=== PATIENT | female | born 1950 | race Caucasian/White ===

== ENCOUNTER → 2017-02-05 | Outpatient (CLI) | payer OTHER ==
[~2017-02-05] MED LIST: ASP81TEC PO; ATOR80TA2 PO; FISH1CAP15 PO; LISI1TAB6 PO; METO25TA PO; MULT1CAP27 PO; ROSU10TA12 PO; UBID200C17 PO
== END ==
LOC: RAD 07:16
PROVIDERS: ATTEND Family Medicine
DX: Z12.31 Encounter for screening mammogram for malignant neoplasm of breast (principal)
CPT/HCPCS: 77067

== ENCOUNTER → 2018-01-20 | Outpatient (CLI) | payer OTHER ==
--- NOTE | 2018-01-20 12:20 | Diagnostic Imaging Report ---
Indication: Routine screening. Comparison is made with prior exam from 02/05/2017 and 01/30/2016. 2-D and 3-D bilateral screening mammography was performed with CAD. Scattered fibroglandular densities are identified bilaterally. Benign calcifications are identified bilaterally. No mass or malignant-appearing microcalcifications are seen. Axillae are unremarkable. Impression: BI-RADS category 2 No mammographic features suspicious for malignancy are identified. ACR BI-RADS Category 2: Benign findings. Result letter will be mailed to the patient. Note: At least 10% of breast cancer is not imaged by mammography. Dictated by: Dictated on workstation # [id number]
== END ==
LOC: RAD 07:50
PROVIDERS: ATTEND Nurse Practitioner Family
DX: Z12.31 Encounter for screening mammogram for malignant neoplasm of breast (principal)
CPT/HCPCS: 77067

== ENCOUNTER → 2018-12-15 | Outpatient (CLI) | payer MEDICARE, OTHER ==
--- NOTE | 2018-12-15 18:33 | Diagnostic Imaging Report ---
PROCEDURE: US right lower extremity venous. TECHNIQUE: Multiple real-time grayscale images were obtained over the right lower extremity in various projections. Additional spectral analysis and color Doppler duplex images were also obtained. INDICATION: Right leg pain and swelling. FINDINGS: There is no evidence of right lower extremity DVT. Right lower extremity deep venous system shows normal compressibility with normal response to augmentation and Valsalva. No fluid collection or mass is seen. IMPRESSION: No evidence of right lower extremity DVT. Dictated by: Dictated on workstation # [id number]
== END ==
LOC: RAD 11:13
PROVIDERS: ATTEND Internal Medicine
DX: R60.0 Localized edema (principal)

== ENCOUNTER → 2019-01-26 | Outpatient (CLI) | payer MEDICARE, OTHER ==
--- NOTE | 2019-01-26 19:18 | Diagnostic Imaging Report ---
INDICATION: Routine screening. Comparison is made with prior mammograms from 01/20/2018 and 02/05/2017. 2-D and 3-D bilateral screening mammography was performed. The current study was also evaluated with a Computer Aided Detection (CAD) system. 3-D tomosynthesis was also performed and reviewed. FINDINGS: Scattered fibroglandular densities are identified bilaterally. Benign calcifications are noted bilaterally. No mass or malignant-appearing microcalcifications are seen. The axillae are unremarkable. IMPRESSION: No mammographic features suspicious for malignancy are identified. ACR BI-RADS Category 2: Benign findings. Result letter will be mailed to the patient. Note: At least 10% of breast cancer is not imaged by mammography. Dictated by: Dictated on workstation # [id number]
== END ==
LOC: RAD 10:11
PROVIDERS: ATTEND Nurse Practitioner Family
DX: Z12.31 Encounter for screening mammogram for malignant neoplasm of breast (principal)
CPT/HCPCS: 77067

== ENCOUNTER 2019-03-24 12:00 | Outpatient (CLI) | payer MEDICARE, OTHER ==
[~2019-03-24] VITALS: Ht 154.9 cm; Wt 90.8 kg
[~2019-03-24 12:00] MED LIST changes: +ASPI-999 PO; +ATOR20TA66 PO; +CHOL100048 PO; +LISI-552 PO; +METO-387 PO; +MULT1TAB69 PO; +TURM538C PO; +UBID200C16 PO
== END 2019-03-24 12:29 | disposition home or self-care (01) ==
LOC: PREOP 12:00
PROVIDERS: ATTEND Internal Medicine
DX: Z01.818 Encounter for other preprocedural examination (principal)

== ENCOUNTER 2019-03-26 07:28 | Day surgery (SDC) | payer MEDICARE, OTHER ==
--- NOTE | 2019-03-13 11:07 | HISTORY AND PHYSICAL ---
DATE OF SERVICE: COLONOSCOPY HISTORY AND PHYSICAL REFERRING PHYSICIAN: Randolph Rosenbaum DO HISTORY OF PRESENT ILLNESS: The patient is a 68-year-old white female referred for surveillance colonoscopy. She has a past history of colon polyps noted on her first colonoscopy in 2001. She has a cousin, who was diagnosed with colon cancer at the age 64 and an aunt with colon cancer on the same side of the family, unknown age. Her last colonoscopy was nearly 6 years ago in 05/2013 revealed mild diverticular disease confined to the sigmoid colon with no evidence for neoplasia. She denies any bowel habit changes noted no bright red blood per rectum or melena and denies abdominal pain. She believes that her weight has been stable. PAST MEDICAL HISTORY: Significant for hypertension and hyperlipidemia with no known history of vascular disease per her report. PAST SURGICAL HISTORY: She had total abdominal hysterectomy and bilateral salpingo-oophorectomy over 10 years ago. She had x2 and an appendectomy many years ago. 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 She still works on occasion. She reports no past smoking or drinking history. PHYSICAL EXAMINATION: GENERAL: Reveals a well-appearing white female in no acute distress. VITAL SIGNS: Weight 203 pounds, blood pressure 138/90. HEENT: Unremarkable. Sclerae nonicteric. CHEST: Clear to auscultation. CARDIOVASCULAR: Reveals regular rate and rhythm without murmur, S3 or S4. ABDOMEN: Soft, supple without mass, organomegaly or tenderness. EXTREMITIES: Reveal no cyanosis, clubbing or edema. ASSESSMENT: The patient is set up for surveillance colonoscopy due to past history of colon polyps and a family history of colon cancer. See HPI. Prep instructions with the Suprep kit were given and questions were answered. Electronic medical record was reviewed. I thank you for the referral of this pleasant lady. Job ID: [id number] DocumentID: [id number] Dictated Date: 03/09/2019 10:06:48 Employment Service Specialist Date: 03/09/2019 10:34:35 Dictated By: CY PATEL MD
[~2019-03-26] VITALS: Ht 154.9 cm; Wt 90.8 kg
[2019-03-26] VITALS (11 sets, daily range): BP systolic 141–190; BP diastolic 80–98
[2019-03-26] MEDS ORDERED: fentaNYL INJECTION 100 MCG/2 ML AMP IVP ONE (07:30)
[2019-03-26] MEDS ORDERED: D5 LR IV SOLUTION 1,000 ML IV STA (07:30)
[2019-03-26] MEDS ORDERED: MIDAZOLAM 5 MG/5 ML (VERSED) VIAL IV PRN (07:30)
[2019-03-26] MEDS ORDERED: LIDOCAINE JELLY 2% 6 ML SYRINGE MM PRN (07:30)
[2019-03-26] MEDS ORDERED: D5 LR IV SOLUTION 1,000 ML IV ONE (07:37)
[2019-03-26] MEDS ORDERED: LIDOCAINE JELLY 2% 6 ML SYRINGE ONE (08:00)
[2019-03-26] MEDS ORDERED: fentaNYL INJECTION 100 MCG/2 ML AMP ONE (08:00)
[2019-03-26] MEDS ORDERED: MIDAZOLAM 5 MG/5 ML (VERSED) VIAL ONE (08:00)
--- NOTE | 2019-03-26 08:01 | Pre-Op Note & Conscious Sedat ---
Pre-Operative Progress Note H&P Reviewed The H&P was reviewed, patient examined and no changes noted. Date H&P Reviewed: Mar 26, 2019 Time H&P Reviewed: 07:30 Conscious Sedation Pre-Proced ASA Score 2 For ASA 3 and 4: Consider anesthesia and medical clearance. Also, for patients with a history of failed moderate sedation consider anesthesia. Airway Lungs Heart ASA score ASA 1: a normal healthy patient ASA 2: a patient with a mild systemic disease (mid diabetes, controlled hypertension, obesity ASA 3: a patient with a severe systemic disease that limits activity (angina, COPD, prior Myocardial infarction) ASA 4: a patient with an incapacitating disease that is a constant threat to life (CHF, renal failure) ASA 5: a moribund patient not expected to survive 24 hrs. (ruptured aneurysm) ASA 6: a declared brain- patient whose organs are being harvested. For emergent operations, add the letter E after the classification Mallampati Classification Grade 2 Sedation Plan Analgesia, Amnesia, Plan communicated to team members, Discussed options with patient/fam, Discussed risks with patient/fam The patient is an appropriate candidate to undergo the planned procedure, sedation, and anesthesia. The patient immediately re-assessed prior to indication. CY PATEL MD Mar 26, 2019 08:01
--- NOTE | 2019-03-27 01:46 | OPERATIVE REPORT ---
DATE OF SERVICE: COLONOSCOPY SUMMARY INDICATION FOR THE PROCEDURE: Colonoscopy was performed due to history of colon polyps and a family history of colon cancer. The patient was placed in the left lateral decubitus position. Prior to undergoing colonoscopy, digital rectal evaluation was performed. Anal sphincter tone was normal and the perianal reflexes intact. No abnormalities, no additional inspection of anal canal or distal rectal vault. The colonoscope was then inserted into the rectum and under direct visualization advanced to cecum. The cecum was identified by identification of the ileocecal valve and cecal strap. Photographic documentation was obtained. Careful inspection was made on withdrawal. The quality of the prep was good. The patient tolerated the procedure well. FINDINGS: There was no evidence for internal or external hemorrhoids and the rectum was unremarkable. There were a moderate number of small to medium size sigmoid diverticulum without evidence for diverticulitis. No other sigmoid abnormalities were noted. The descending colon, splenic flexure, transverse colon, hepatic flexure, ascending colon and cecum were unremarkable. ASSESSMENT: No evidence for neoplasia was identified. A mild to moderate number sigmoid that is of a small to medium size sigmoid diverticulum were noted without evidence for diverticulitis. This was otherwise normal colonoscopy to the cecum. Considering family history, I would advocate consideration for repeat screening colonoscopy in 5 years. I thank you for the referral of this pleasant lady. Job ID: [id number] DocumentID: [id number] Dictated Date: 03/26/2019 17:10:39 Tube Bender Hand Date: 03/27/2019 01:44:52 Dictated By: CY PATEL MD
== END 2019-03-26 09:05 | disposition home or self-care (01) ==
LOC: ENDO 07:28
PROVIDERS: ATTEND Internal Medicine
DX: Z12.11 Encounter for screening for malignant neoplasm of colon (principal); K57.30 Diverticulosis of large intestine without perforation or abscess without bleeding; I10 Essential (primary) hypertension; E78.5 Hyperlipidemia, unspecified; Z86.010 Personal history of colon polyps; Z90.710 Acquired absence of both cervix and uterus; Z90.89 Acquired absence of other organs; Z80.0 Family history of malignant neoplasm of digestive organs

== ENCOUNTER → 2020-01-28 | Outpatient (CLI) | payer MEDICARE, OTHER ==
[~2020-01-28] MED LIST changes: -METO-387 PO; +MTP25TSR PO; +MULT-567 PO; -MULT1TAB69 PO
--- NOTE | 2020-01-28 09:41 | Diagnostic Imaging Report ---
INDICATION: Routine screening. Comparison is made with prior mammogram from 01/26/2019 and 01/20/2018. 2-D and 3-D bilateral screening mammography was performed with CAD. Both breasts remain heterogeneously dense, limiting the sensitivity of mammography. Benign calcifications are noted bilaterally. The parenchymal pattern is stable. No mass or malignant appearing microcalcifications are identified. Axillae are unremarkable. IMPRESSION: BI-RADS Category 2 No mammographic features suspicious for malignancy are identified. ACR BI-RADS Category 2: Benign findings. Result letter will be mailed to the patient. Note: At least 10% of breast cancer is not imaged by mammography. Dictated by: Dictated on workstation # [id number]
== END ==
LOC: RAD 07:09
PROVIDERS: ATTEND Internal Medicine
DX: Z12.31 Encounter for screening mammogram for malignant neoplasm of breast (principal)
CPT/HCPCS: 77063; 77067

== ENCOUNTER → 2020-10-19 | Outpatient (CLI) | payer MEDICARE, OTHER ==
[~2020-10-19] MED LIST changes: -LISI-552 PO; +LISI20TA26 PO
[2020-10-19 14:00] LABS: CALCIUM 9.9 MG/DL (8.5-10.1); CREATININE SERUM 1.1 MG/DL (0.60-1.30); MAGNESIUM 2.4 MG/DL (1.6-2.4); POTASSIUM 4.2 MMOL/L (3.6-5.0)
== END ==
LOC: LAB 13:10
PROVIDERS: ATTEND Nurse Practitioner Family
DX: I10 Essential (primary) hypertension (principal)
CPT/HCPCS: 36415; 80048; 83735

== ENCOUNTER → 2020-10-20 | Outpatient (CLI) | payer MEDICARE, OTHER | LOC: CARD 13:48 | PROVIDERS: ATTEND Nurse Practitioner Family | DX: R06.09 Other forms of dyspnea (principal); I51.7 Cardiomegaly | CPT/HCPCS: 93306 ==

== ENCOUNTER → 2020-10-24 | Outpatient (CLI) | payer MEDICARE, OTHER ==
[~2020-10-24] VITALS: Ht 157 cm; Wt 100.0 kg
[~2020-10-24] MED LIST changes: +CATHETER FLUSH 10 ML SYR IV PRN; +REGADENOSON 0.4 MG/5 ML SYR (LEXISCAN) IV ONE
[2020-10-24 09:06] VITALS: BP 155/78
[2020-10-24] MEDS: REGADENOSON 0.4 MG/5 ML SYR (LEXISCAN) IV ONE ×2 (09:07→09:18)
[2020-10-24 09:18] VITALS: BP 165/87
--- NOTE | 2020-10-24 15:54 | STRESS TEST ---
DATE OF SERVICE: 10/24/2020 RESTING AND POST REGADENOSON TECHNETIUM-99M TETROFOSMIN SPECT CT IMAGING ORDERING PHYSICIAN: Blanche Madera APRN PRIMARY PHYSICIAN: Dr. Rosenbaum. CLINICAL DIAGNOSIS: Shortness of breath. Baseline images were carried out after injection of 10.78 mCi of technetium-99m Tetrofosmin. This was followed by 0.4 mg regadenoson and 29.1 mCi of technetium-99m Tetrofosmin for stress imaging. The electrocardiogram showed sinus rhythm at baseline. There was subtle, nonspecific ST and T-wave abnormality at baseline. It did not change significantly with regadenoson infusion. The patient noted some shortness of breath and a headache following regadenoson infusion, which resolved in a few minutes. Review of images at rest and following stress does not indicate any distinct perfusion defects consistent with significant myocardial ischemia or infarction. This study is technically difficult because of considerable patient motion during image acquisition, especially during stress image acquisition. Gated images show normal global left ventricular systolic function with normal regional wall motion. Left ventricular ejection fraction is calculated to be 68%. Left ventricular end diastolic volume is 29 mL. TID is absent (0.93). CONCLUSIONS: 1. No evidence of any significant myocardial ischemia or infarction on this study. 2. Normal regional wall motion. 3. Normal global left ventricular systolic function with a calculated ejection fraction of 68%. Job ID: [id number] DocumentID: [id number] Dictated Date: 10/24/2020 15:11:34 Stain Sprayer Date: 10/24/2020 15:52:31 Dictated By: FATMATA MASSEY MD, MA, FACP, FACC,
== END ==
LOC: CARD 07:12
PROVIDERS: ATTEND Nurse Practitioner Family
DX: R06.09 Other forms of dyspnea (principal); R06.02 Shortness of breath
CPT/HCPCS: 78452; 93017; A9502

== ENCOUNTER → 2021-01-29 | Outpatient (CLI) | payer MEDICARE, OTHER ==
[~2021-01-29] MED LIST changes: -CATHETER FLUSH 10 ML SYR IV PRN; -REGADENOSON 0.4 MG/5 ML SYR (LEXISCAN) IV ONE
--- NOTE | 2021-01-29 14:57 | Diagnostic Imaging Report ---
INDICATION: Routine screening. COMPARISON is made with prior mammograms 01/28/2020 and 01/26/2019. 2-D and 3-D bilateral screening mammography was performed with CAD. Scattered fibroglandular densities are identified bilaterally. Benign-appearing calcifications are noted bilaterally. No mass or malignant-appearing microcalcifications are seen. Axillae are unremarkable. IMPRESSION: BI-RADS Category 2 No mammographic features suspicious for malignancy are identified. ACR BI-RADS Category 2: Benign findings. Result letter will be mailed to the patient. Note: At least 10% of breast cancer is not imaged by mammography. Dictated by: Dictated on workstation # [id number]
== END ==
LOC: RAD 14:18
PROVIDERS: ATTEND Internal Medicine
DX: Z12.31 Encounter for screening mammogram for malignant neoplasm of breast (principal)
CPT/HCPCS: 77063; 77067

== ENCOUNTER → 2022-01-31 | Outpatient (CLI) | payer MEDICARE, OTHER ==
--- NOTE | 2022-01-31 13:52 | Diagnostic Imaging Report ---
Indication: Routine screening. Comparison is made with prior mammogram from 01/29/2021 and 01/28/2020. 2-D and 3-D bilateral screening mammography was performed with CAD. CAD is utilized. The current study was also evaluated with a Computer Aided Detection (CAD) system. Both breasts are heterogeneously dense, limiting the sensitivity of mammography. There is a nodular density just above the nipple line on the left MLO view at anterior depth, appearing more prominent than prior exams. No correlate on the CC view is identified. There is scattered benign calcifications. No malignant-appearing microcalcifications are identified. Axillae are unremarkable. IMPRESSION: BI-RADS 0 Left breast density. Additional views are recommended for further evaluation. ACR BI-RADS Category 0: Incomplete. (Needs additional imaging evaluation). Result letter will be mailed to the patient. Note: At least 10% of breast cancer is not imaged by mammography. Dictated by: Dictated on workstation # [id number]
== END ==
LOC: RAD 10:20
PROVIDERS: ATTEND Internal Medicine
DX: Z12.31 Encounter for screening mammogram for malignant neoplasm of breast (principal)
CPT/HCPCS: 77063; 77067

== ENCOUNTER → 2022-02-18 | Outpatient (CLI) | payer MEDICARE, OTHER ==
--- NOTE | 2022-02-18 14:23 | Diagnostic Imaging Report ---
INDICATION: Left breast density. Patient presents for additional views. COMPARISON: Recent screening study from 01/31/2022. TECHNIQUE: Unilateral left 2D and 3D diagnostic mammography was performed. This included spot compression CC and ML views as well as conventional 90 degree lateral views. FINDINGS: The additional views fail to demonstrate a discrete mass. The area of density noted on the left MLO view most likely represented superimposed tissue. There appears to be normal dispersion of fibroglandular elements with additional views. IMPRESSION: Additional views fail to demonstrate a discrete mass. The patient may return to routine annual screening mammography. ACR BI-RADS Category 1: Negative. Result letter will be mailed to the patient. Note: At least 10% of breast cancer is not imaged by mammography. Dictated by: Dictated on workstation # [id number]
== END ==
LOC: RAD 12:45
PROVIDERS: ATTEND Internal Medicine
DX: R92.8 Other abnormal and inconclusive findings on diagnostic imaging of breast (principal)
CPT/HCPCS: 77065; G0279

== ENCOUNTER 2023-02-14 10:26 | Emergency (ER) | payer MEDICARE, OTHER ==
[~2023-02-14] VITALS: Ht 157 cm; Wt 90.7 kg
--- NOTE | 2023-02-14 10:58 | ED Fall/Injury ---
General Chief Complaint: Trauma-Non Activation Stated Complaint: FALL | HANDS,KNEES,HEAD INJ Nursing Triage Note: pt presents to ed for fall outside outpatient sidewalk. pt reports she tripped over curb and fell face forward. pt denies loc. pt has abrasion to head and l and r knee. Source: patient Exam Limitations: no limitations History of Present Illness Date Seen by Provider: Feb 14, 2023 Time Seen by Provider: 10:38 Initial Comments Here from outpatient parking lot after patient fell after tripping over a curb. She landed on both knees and both arms and did strike her head. She is unsure of loss of consciousness but does not think so. She did not break her glasses. She was able to walk afterwards and does have minor abrasions to both knees and both hands at the base as well as both elbows. She does have superficial abrasion to the forehead. She is not on blood thinners. She does not have nausea or vomiting now and denies vision changes. She did get the wind knocked out of her and was complaining of some pain from that for a little bit but that is completely resolved now. She described that as abdominal pain. Occurred: just prior to arrival (Approximately 15 minutes prior) Severity: mild Injuries/Pain Location: head, upper extremity, lower extremity Context: tripped Loss of Consciousness: unsure Associated Symptoms (Fall): Abdominal Pain; No Chest Pain, No Lightheadedness, No Nausea/Vomiting, No Neck Pain Allergies and Home Medications Allergies Coded Allergies: No Known Drug Allergies (Unverified , 02/20/12) Patient Home Medication List Home Medication List Reviewed: Yes Aspirin (Aspirin) 81 Mg Tab.chew, 81 MG PO DAILY, (Reported) Entered as Reported by: PASQUALE SHELTON on 03/24/19 115 Atorvastatin Calcium (Atorvastatin Calcium) 20 Mg Tablet, 20 MG PO DAILY, (Reported) Entered as Reported by: PASQUALE SHELTON on 03/24/19 115 Cholecalciferol (Vitamin D3) (Vitamin D) 1,000 Unit Capsule, 1,000 UNIT PO DAILY, (Reported) Entered as Reported by: PASQUALE SHELTON on 03/24/19 115 Fish Oil/Dha/Epa (Fish Oil 1,200 mg Fish Oil) 1 Each Capsule, 1 EACH PO DAILY, (Reported) Entered as Reported by: PASQUALE SHELTON on 03/24/19 115 Lisinopril (Lisinopril) 20 Mg Tablet, 20 MG PO DAILY, (Reported) Entered as Reported by: PASQUALE SHELTON on 03/24/19 115 Metoprolol Succinate (Metoprolol Succinate) 25 Mg Tab.er.24h, 25 MG PO DAILY, (Reported) Entered as Reported by: PASQUALE SHELOTN on 03/24/19 115 Multivitamin (Multivitamins) 1 Each Tablet, 1 EACH PO DAILY, (Reported) Entered as Reported by: PASQUALE SHELTON on 03/24/19 115 Turmeric Root Extract (Turmeric) 538 Mg Capsule, 538 MG PO DAILY, (Reported) Entered as Reported by: PASQUALE SHELTON on 03/24/19 115 Ubidecarenone (Co Q-10) 200 Mg Capsule, 200 MG PO DAILY, (Reported) Entered as Reported by: PASQUALE SHELTON on 03/24/19 115 Review of Systems Review of Systems Constitutional: see HPI; No chills, No fever Eyes: Denies Blurred Vision, Denies Decreased Acuity Ears, Nose, Mouth, Throat: no symptoms reported Respiratory: see HPI; No cough, No short of breath Cardiovascular: no symptoms reported Gastrointestinal: see HPI Musculoskeletal: muscle pain Skin: change in color, lesions Psychiatric/Neurological: Denies Headache Past Rxjzomi-Osvmvb-Lsablq Hx Patient Social History Tobacco Use?: No Substance use?: No Alcohol Use?: No Pt feels they are or have been: No Immunizations Up To Date Tetanus Booster (TDap): Unknown Seasonal Allergies Seasonal Allergies: No Past Medical History Surgery/Hospitalization HX: pmh: htn, high chol, dm sx: r rknee replacement. Surgeries: Yes (c/s x2, thumb sx) Appendectomy, Section, Hysterectomy Respiratory: No Currently Using CPAP: No Currently Using BIPAP: No Cardiac: Yes High Cholesterol, Hypertension Neurological: No HAND SPRAYER History: Hysterectomy Genitourinary: No Gastrointestinal: No Polyps Musculoskeletal: No Endocrine: No HEENT: No Cancer: No Psychosocial: No Integumentary: No Blood Disorders: No Family Medical History Reviewed Nursing Family Hx Colon cancer Physical Exam Vital Signs Vital Signs - First Documented 02/14/23 10:37 Temp 36.4 Pulse 65 Resp 16 B/P (MAP) 155/92 (113) Pulse Ox 97 Capillary Refill : Less Than 3 Seconds Height, Weight, BMI Height: '" Weight: 190lbs. oz. kg; 36.00 BMI Method: General Appearance: WD/WN, no apparent distress HEENT: PERRL/EOMI, TMs normal, pharynx normal Neck: non-tender, full range of motion, supple, normal inspection Cardiovascular: regular rate, rhythm, no murmur Respiratory: lungs clear, normal breath sounds Gastrointestinal: non tender, soft Extremities: normal range of motion, non-tender Neurologic/Psychiatric: alert, oriented x 3 Skin: warm/dry, other (Abrasions noted to bilateral knees that are approximately 2 x 2 cm. 1 x 2 cm abrasions noted to both elbows and superficial abrasion noted to the base of the hand on the palmar surface bilateral as well as superficial abrasion to the forehead.) [place] Coma Score Best Eye Response: (4) Open Spontaneously Best Verbal Response: (5) Oriented Best Motor Response: (6) Obeys Commands Progress/Results/Core Measures Results/Orders My Orders Orders - CAIT CORREIA MD Ct Head Wo (02/14/23 10:47) Dipht/Pertuss(Acell)/Tet Adult (Dipht/Pe (02/14/23 11:00) Medications Given in ED Current Medications Medications Dose Ordered Sig/Gina Route Start Time Stop Time Status Last Admin Dose Admin Diphtheria/ Tetanus/Acell Pertussis 0.5 ml ONCE ONCE IM 02/14/23 11:00 02/14/23 11:01 DC 02/14/23 11:33 0.5 ML Vital Signs/I&O 02/14/23 10:37 Temp 36.4 Pulse 65 Resp 16 B/P (MAP) 155/92 (113) Pulse Ox 97 Blood Pressure Mean: 113 Progress Progress Note : Progress Note Seen and evaluated. We will go ahead and get CT of the head due to the head injury. She is walking and moving her upper and lower extremities without difficulty although has abrasions as noted. We will update her tetanus. CT he ad ordered due to age and type of fall. She agrees. Monitor patient. Differential diagnosis includes intracranial hemorrhage versus head injury as well as abrasions 1130: CT head reviewed by me and shows no acute intracranial hemorrhage on my interpretation. Additional findings noted in radiology report but otherwise agrees. This was discussed with the patient. I do believe she is safe for discharge home and she agrees. Her is here with her. Discharged home with return precautions. Patient verbalized understanding instructions and agreement with plan. Departure Impression Primary Impression: Minor head injury without loss of consciousness Qualified Codes: S09.90XA - Unspecified injury of head, initial encounter Additional Impressions: Multiple abrasions Multiple contusions Disposition: HOME, SELF-CARE Condition: Stable Departure-Patient Inst. Referrals: ALEXANDER DIXON DO (PCP/Family) Primary Care Physician Patient Instructions: Minor Head Injury (DC), Abrasions ED, Minor Contusion ED Add. Discharge Instructions: All discharge instructions reviewed with patient and/or family. Voiced understanding. You may take Tylenol/acetaminophen 1000 mg every 6-8 hours as needed for pain. You may use ice packs to area of concern 20 minutes/h as needed over the next 1 to 2 days for bruising and to reduce pain. You may use qnaf-kfn-zkecovz Icy Hot with lidocaine patches or cream, Aspercreme with lidocaine patches or cream, Salonpas with lidocaine patches or cream or similar items to area of concern per package directions. You should rest today and tomorrow as you will likely have headache after the fall. Return for worse pain, fever, vomiting, weakness, breathing problems, vision or balance problems or other concerns as needed. CAIT CORREIA MD Feb 14, 2023 10:58
[2023-02-14] MEDS ORDERED: Tetanus/Diphtheria/Pertussis (Acell) ADULT Vaccine 0.5 ML IM ONE (11:00)
--- NOTE | 2023-02-14 11:13 | Diagnostic Imaging Report ---
PROCEDURE: CT head without contrast. TECHNIQUE: Multiple contiguous axial images were obtained through the brain without the use of intravenous contrast. Auto Exposure Controls were utilized during the CT exam to meet ALARA standards for radiation dose reduction. INDICATION: Fall and head pain. COMPARISON: No prior studies are available for comparison. FINDINGS: The ventricular size is normal. Cystic changes are identified in the region of the left basal ganglia measuring approximately 3.4 x 2.6 cm. This has the appearance of encephalomalacia from prior infarct. No sulcal effacement or midline shift is identified. No acute intra-axial or extra-axial hemorrhage is detected. Cisterns are patent. The visualized paranasal sinuses are clear. IMPRESSION: Chronic changes on the left. No acute intracranial process is detected. Dictated by: Dictated on workstation # [id number]
[2023-02-14 11:47] VITALS: BP 138/92
== END 2023-02-14 11:47 | disposition home or self-care (01) ==
LOC: EDUNIT# 10:26 → ER 10:28
DX: S09.90XA Unspecified injury of head, initial encounter (principal); S80.212A Abrasion, left knee, initial encounter; S80.211A Abrasion, right knee, initial encounter; S00.81XA Abrasion of other part of head, initial encounter; S50.312A Abrasion of left elbow, initial encounter; S50.311A Abrasion of right elbow, initial encounter; S60.512A Abrasion of left hand, initial encounter; S60.511A Abrasion of right hand, initial encounter; T14.8XXA Other injury of unspecified body region, initial encounter; Z23 Encounter for immunization; W01.198A Fall on same level from slipping, tripping and stumbling with subsequent striking against other object, initial encounter; Y92.481 Parking lot as the place of occurrence of the external cause
CPT/HCPCS: 70450; 90715

== ENCOUNTER → 2023-02-14 | Outpatient (CLI) | payer MEDICARE, OTHER ==
--- NOTE | 2023-02-14 12:56 | Diagnostic Imaging Report ---
INDICATION: Routine screening. Comparison is made with prior mammogram from 01/31/2022 and 01/29/2021. 2-D and 3-D bilateral screening mammography was performed with CAD. Both breasts are heterogeneously dense, limiting the sensitivity of mammography. The parenchymal pattern is stable. No mass or malignant-appearing microcalcifications are seen. There are benign calcifications present. Axillae are unremarkable. IMPRESSION: No mammographic features suspicious for malignancy are identified. ACR BI-RADS Category 2: Benign findings. Result letter will be mailed to the patient. Note: At least 10% of breast cancer is not imaged by mammography. BI-RADS Category 2 Dictated by: Dictated on workstation # [id number]
== END ==
LOC: RAD 09:53
PROVIDERS: ATTEND Internal Medicine
DX: Z12.31 Encounter for screening mammogram for malignant neoplasm of breast (principal)
CPT/HCPCS: 77063; 77067